=== PATIENT | female | born 1980 | race Caucasian/White ===

== ENCOUNTER 2019-11-12 07:08 | Emergency (ER) | payer BC, SELFPAY ==
[2019-11-12 07:15] VITALS: BP 165/105; PULSE 88; RESP 18; TEMP 36.1; O2SAT 100
[2019-11-12 08:07] LABS: Basophils Percent Auto 0.8 % (0.2-1.2); Eosinophils Absolute Auto 0.2 K/mm3 (0-0.3); Eosinophils Percent Auto 3.3 % (0-4.4); Hematocrit 38.8 % (37.0-47.0); Hemoglobin 12.7 g/dL (12.0-15.0); Immature Granulocyte Absolute 0.05 K/mm3 (0.00-0.031); Lymphocytes Absolute Auto 1.54 K/mm3 (0.9-3.2); Lymphocytes Percent Auto 31.3 % (18.3-44.2); Mean Corpuscular HGB Conc 32.7 g/dl (32-36); Mean Corpuscular Hemoglobin 28.9 pg (26-34); Mean Corpuscular Volume 88.4 fl (80-100); Mean Platelet Volume 10.3 fl (7.4-10.4); Monocytes Absolute Auto 0.4 K/mm3 (0.1-0.6); Monocytes Percent Auto 7.5 % (2.6-8.5); Neutrophils Absolute Auto 2.8 K/mm3 (1.3-6.7); Neutrophils Percent Auto 56.1 % (45.5-73.1); Platelet Count Result 314 k/mm3 (150-375); Red Blood Count 4.39 M/mm3 (4.2-5.4); White Blood Count 4.9 K/mm3 (4.5-10.0)
--- NOTE | 2019-11-12 08:21 | ED.FEMALEGU ---
HPI - Female Genitourinary General Chief complaint: Vaginal Bleeding Stated complaint: and bleeding Time Seen by Provider: 11/12/19 07:59 Source: patient and RN notes reviewed Mode of arrival: ambulatory Limitations: no limitations History of Present Illness HPI Narrative: Pt is a 39 y/o female who presents to the ED with c/o vaginal bleeding. She notes that she just discovered she was last week with positive home tests. Pt states that she began having light vaginal bleeding 3 days ago. According to the nurse, the pt initially noticed bright red blood, but has since had more pink-colored blood. Pt also had some abd cramping with the spotting but denies any other symptoms. Reports today she took a hot shower and her symptoms stopped, so she came in the get checked out. MD elicited complaint: vaginal bleeding Onset (ago): day(s) (3) Location of symptoms: vaginal Vaginal bleeding: bright red Associated symptoms: abdominal pain (lower ABD cramping) Possible : at home test positive Related Data Home Medications Medication Instructions Recorded Confirmed hydrochlorothiazide 11/12/19 lisinopril 11/12/19 Allergies Allergy/AdvReac Type Severity Reaction Status Date / Time No Known Allergies Allergy Unverified 11/12/19 07:34 Review of Systems Review of Systems: All systems reviewed & are unremarkable except as noted in HPI and below Gastrointestinal: Gastrointestinal: Reports abdominal pain (lower ABD cramping) Genitourinary: Genitourinary: Reports abnormal vaginal bleeding PMFSH Past Medical History Medical History Anxiety HTN (hypertension) Migraines Surgical History Surgical History Hx of section x2 Social History Social History Smoking status: Never smoker Gender identity (if verbalized by the patient): Female Exam Const: General: no acute distress and alert Orientation/consciousness: patient oriented x3 Other: fully dressed and seated comfortably on the gurney Resp: Effort & Inspection: normal respiratory effort Course Course Emergency Course: She was to get into a gown and be switched onto a pusher runner bed for exam but decided to sign herself out As such, no pusher runner exam and no imaging were done and she was appraised of possibility of miscarriage or ectopic prior to departing Labs which were done, included quant 5700 and O+ blood type Vital Signs Vital signs: Vital Signs Temperature 36.1 C L 11/12/19 07:15 Pulse Rate 88 11/12/19 07:15 Respiratory Rate 18 11/12/19 07:15 Blood Pressure 165/105 H 11/12/19 07:15 Pulse Oximetry 100 11/12/19 07:15 Temperature 36.1 C L 11/12/19 07:15 Pulse Rate 88 11/12/19 07:15 Respiratory Rate 18 11/12/19 07:15 Blood Pressure 165/105 H 11/12/19 07:15 Pulse Oximetry 100 11/12/19 07:15 MDM - Female Genitourinary Lab Data Result diagrams: 11/12/19 07:52 Labs: Lab Results 11/12/19 11/12/19 11/12/19 Range/Units 07:52 07:52 07:52 WBC 4.9 (4.5-10.0) K/mm3 RBC 4.39 (4.2-5.4) M/mm3 Hgb 12.7 (12.0-15.0) g/dL Hct 38.8 (37.0-47.0) % MCV 88.4 (80-100) fl MCH 28.9 (26-34) pg MCHC 32.7 (32-36) g/dl RDW 13.0 (11.5-14.5) % Plt Count 314 (150-375) k/mm3 MPV 10.3 (7.4-10.4) fl Immature Gran % (Auto) 1.0 H (0-0.5) % Neut % (Auto) 56.1 (45.5-73.1) % Lymph % (Auto) 31.3 (18.3-44.2) % [place] % (Auto) 7.5 (2.6-8.5) % Eos % (Auto) 3.3 (0-4.4) % Baso % (Auto) 0.8 (0.2-1.2) % Lymph # (Auto) 1.54 (0.9-3.2) K/mm3 [place] # (Auto) 0.4 (0.1-0.6) K/mm3 Eos # (Auto) 0.2 (0-0.3) K/mm3 Baso # (Auto) 0.0 (0.0-0.1) K/mm3 Abs Immat Gran (auto) 0.05 H (0.00-0.031) K/mm3 Absolute Neuts (auto) 2.8 (1.3-6.7) K/mm3 Absolute Nucleated RBC 0.0
--- NOTE | 2019-11-12 08:45 | PC.NURSE ---
Addendum entered by Zachariah Lopez RN 11/12/19 09:06: laser engraver Karmen made aware of pt's complaint and to bedside to speak with patient. Original Note: Pt being prepared for pelvic exam, pt becomes tearful, states he was rude. I don't want to do it. I just feel like I'm wasting all of your time. I mean, do I really need to be here?. Pt reports ERP made her feel uncomfortable. Emotional support given. Explained need for pelvic exam and risks of not completing testing. Pt verbalizes understanding but states does not wish to have a pelvic exam per him. Offered to complete the exam with another provider, pt continues to refuse and states will follow up with her doctor.
== END 2019-11-12 08:57 | disposition left against medical advice (07) ==
PROVIDERS: Emergency Provider Emergency Medicine
DX: O20.0 Threatened abortion (principal); O10.911 Unspecified pre-existing hypertension complicating pregnancy, first trimester; Z3A.00 Weeks of gestation of pregnancy not specified
CPT/HCPCS: 36415; 81025; 84702; 85025; 99283

== ENCOUNTER 2019-11-15 16:17 | Emergency (ER) | payer BC, SELFPAY ==
--- NOTE | ~2019-11-15 | US_ITS ---
EXAMINATION: US OB <=14 wk fetus w TV DATE: 11/15/2019 19:01 INDICATION: Vaginal bleeding in . TECHNIQUE: Real-time transabdominal and transvaginal pelvic ultrasound was performed. COMPARISON: None. FINDINGS: TRANSABDOMINAL ULTRASOUND: The uterus measures 11.9 x 5.6 x 5.5 cm. The endometrial complex is 8 mm in thickness. There is a 6.5 cm subserosal fibroid. TRANSVAGINAL ULTRASOUND: The ovaries are not visualized. IMPRESSION: 1. No visible intrauterine gestational sac, which may be normal in early . Spontaneous abor tion and ectopic are not excluded. Serial beta-hCGs are recommended. 2. Uterine fibroid. Reviewed, dictated and finalized at location A. ERIES TECHNICAL OFFICER IMPRESSION: 1. No visible intrauterine gestational sac, which may be normal in early pregn grisel. Spontaneous and ectopic are not excluded. Serial beta- hCGs are recommended. 2. Uterine fibroid.
[2019-11-15 16:49] VITALS: BP 180/125; PULSE 108; RESP 18; TEMP 37.2; O2SAT 100
--- NOTE | 2019-11-15 17:20 | ED.FEMALEGU ---
HPI - Female Genitourinary General Chief complaint: Vaginal Bleeding Stated complaint: VAG BLEED 8WKS PREG Time Seen by Provider: 11/15/19 17:20 Source: patient Mode of arrival: ambulatory Limitations: no limitations History of Present Illness HPI Narrative: A 39 y/o female presents to the ED with c/o vaginal bleeding since Saturday (5 days ago) that has worsened since onset. Pt states that she is approximately 8 weeks and her LNMP was on 09/27/19. Pt had a positive test at home. Pt was seen in the ED yesterday for the same complaints and had a test done but the pt left because she got angry. Pt has not had an US done. Pt also c/o mid ABD pain that she describes as cramping in character and rates the pain as a 4/10 in severity. Pt notes that the ABD pain was radiating to her back this morning. Pt placed a heating pad on the area with some relief. She reports N/V this morning, but denies a fever and chills. Onset (ago): day(s) (5) Possible : at home test positive Date of Last Menstrual Period: 09/27/19 Related Data Home Medications Medication Instructions Recorded Confirmed hydrochlorothiazide 11/12/19 lisinopril 11/12/19 Allergies Allergy/AdvReac Type Severity Reaction Status Date / Time No Known Allergies Allergy Verified 11/15/19 16:57 Review of Systems Review of Systems: All systems reviewed & are unremarkable except as noted in HPI and below Constitutional: Constitutional: Denies chills, Denies fever(s), Denies headache(s) and Denies weakness Eyes: Eyes: Denies blurry vision ENT: Denies headache(s) and Denies neck pain Cardiovascular: Cardiovascular: Denies chest pain and Denies dyspnea Respiratory: Respiratory: Denies cough and Denies dyspnea Gastrointestinal: Gastrointestinal: Reports abdominal pain (mid with occasional radiation to back), Denies diarrhea, Reports nausea and Reports vomiting Genitourinary: Genitourinary: Reports abnormal vaginal bleeding, Denies hematuria and Denies dysuria Musculoskeletal: Musculoskeletal: Denies back pain and Denies neck pain Neurologic: Denies headache(s) and Denies weakness PMFSH Past Medical History Medical History Anxiety HTN (hypertension) Migraines Surgical History Surgical History Hx of section x2 Social History Social History Smoking status: Never smoker Gender identity (if verbalized by the patient): Female Comments PCP: Physician transportation analyst Exam Const: General: no acute distress and well developed Orientation/consciousness: oriented to person, oriented to place, oriented to time and patient oriented x3 HENMT: Head: normocephalic Ears: external ears normal General nose exam: Normal external nose present Eyes: General: appearance normal, both eyes and all related structures Conjunctivae: conjunctivae normal Neck: Neck: normal visual inspection and full ROM Chest: Chest palpation & inspection: normal inspection of the chest and no tenderness Resp: Effort & Inspection: normal respiratory effort Auscultation: clear to auscultation bilaterally Cardio: Rate: regular rate Rhythm: regular rhythm GI: GI Palp: No abdominal tenderness and Yes Soft to palpation : Speculum Exam - Cervix: Cervical os closed Other: Blood in vaginal canal. No adnexal tenderness. Skin: General skin exam: normal color and turgor normal Neuro: General: oriented to person, oriented to place, oriented to time and patient oriented x3 Cognition (Neuro): normal cognition Extrem: General: normal to inspection, full ROM and no pedal edema Psych: Appearance: grossly normal Mental Status: mental status grossly normal Affect: normal affect Course Consultations Consultation #1: Discussed case with Dr. Tapia who agrees with the assessment that patient likely miscarri
[2019-11-15 17:44] LABS: Basophils Percent Auto 0.6 % (0.2-1.2); Eosinophils Absolute Auto 0.1 K/mm3 (0-0.3); Eosinophils Percent Auto 2.2 % (0-4.4); Hematocrit 38.8 % (37.0-47.0); Hemoglobin 12.6 g/dL (12.0-15.0); Immature Granulocyte Absolute 0.02 K/mm3 (0.00-0.031); Immature Granulocyte Percent A 0.4 % (0-0.5); Lymphocytes Absolute Auto 1.38 K/mm3 (0.9-3.2); Lymphocytes Percent Auto 27.5 % (18.3-44.2); Mean Corpuscular HGB Conc 32.5 g/dl (32-36); Mean Corpuscular Hemoglobin 28.7 pg (26-34); Mean Corpuscular Volume 88.4 fl (80-100); Mean Platelet Volume 10.3 fl (7.4-10.4); Monocytes Absolute Auto 0.3 K/mm3 (0.1-0.6); Neutrophils Absolute Auto 3.2 K/mm3 (1.3-6.7); Neutrophils Percent Auto 63.3 % (45.5-73.1); Platelet Count Result 302 k/mm3 (150-375); Red Blood Count 4.39 M/mm3 (4.2-5.4); Red Cell Distribution Width 12.9 % (11.5-14.5)
[2019-11-15 18:03] LABS: Alanine Aminotransferase 20 U/L (4-35); Albumin Level 4.4 g/dL (3.5-5.1); Alkaline Phosphatase 83 U/L (38-126); Aspartate Amino Transferase 24 U/L (14-36); Bilirubin,Total 0.5 mg/dL (0.2-1.3); Blood Urea Nitrogen 11 mg/dL (7-17); Calcium 9.2 mg/dL (8.4-10.2); Carbon Dioxide 20 mmol/L (22-30); Chloride 104 mmol/L (98-107); Estimated CRCL calculation 126 ml/min; Estimated Glomerular Filt Rate > 60; Glucose 81 mg/dL (65-105); Potassium 3.7 mmol/L (3.4-5.0); Sodium 136 mmol/L (137-145)
[2019-11-15 19:57] LABS: Add Urine Microscopic? YES; Appearance Urine Cloudy (Clear); Bilirubin Urine Negative (Negative); Blood Urine 3+ (Negative); Color Urine Yellow (Yellow); Glucose Urine UA Negative (Negative); Ketones Urine 1+ mg/dL (Negative); Leukocyte Esterase Ur Negative LEU/UL (Negative); Mucus Urine Heavy /lpf; Nitrate Urine Negative (Negative); Protein Urine 2+ mg/dL (Negative); RBC Urine >75 /hpf (0-2); Squamous Epithelial Cell Urine Many /hpf (Few); Urobilinogen Urine Negative mg/dL (<2.0); WBC Urine 0-3 /hpf
[2019-11-15 19:58] LABS: Specific Grav Ur 1.032 (1.001-1.035)
[2019-11-15 20:15] VITALS: BP 140/99; PULSE 88; RESP 20; O2SAT 98
== END 2019-11-15 20:15 | disposition home or self-care (01) ==
PROVIDERS: Emergency Provider Emergency Medicine
DX: O03.9 Complete or unspecified spontaneous abortion without complication (principal); I10 Essential (primary) hypertension; D25.9 Leiomyoma of uterus, unspecified
CPT/HCPCS: 36415; 76801; 76817; 80053; 81001; 84702; 85025; 88305; 99284

== ENCOUNTER 2021-09-22 15:05 | Emergency (ER) | payer BC, SELFPAY ==
[2021-09-22 15:16] VITALS: BP 187/100; PULSE 117; RESP 20; TEMP 36.4; O2SAT 100
--- NOTE | 2021-09-22 15:37 | ED.GENADULT ---
HPI - General Adult General Chief complaint: Urogenital-Female Stated complaint: unknown Source: patient Mode of arrival: ambulatory Limitations: no limitations History of Present Illness HPI narrative: Patient is a 40-year-old -[place] female presents to the [facility] via POV for her. She states she was contacted by her significant other of 7 years who informed her today he was positive for trichomonas. Patient states she is asymptomatic at this time. Related Data Home Medications Medication Instructions Recorded Confirmed amlodipine 09/22/21 Allergies Allergy/AdvReac Type Severity Reaction Status Date / Time No Known Allergies Allergy Verified 11/15/19 16:57 Review of Systems Review of Systems: Pertinent negatives: fever, chills, sweats, change in appetite, poor p.o. intake, recent weight loss/gain, back pain, flank pain, dysuria, hematuria, urinary frequency, urinary urgency, , skin rash, rash on genitalia/groin, pruritus, painful intercourse, lesions, abdominal pain, nausea, vomiting, diarrhea, constipation, shortness of breath, chest pain, heart palpitations, and heart murmur PMFSH Past Medical History Medical History Anxiety HTN (hypertension) Migraines Surgical History Surgical History Hx of section x2 Social History Social History Smoking status: Never smoker Gender identity (if verbalized by the patient): Female Comments Reviewed Exam Narrative: GENERAL: Well-appearing, well-nourished, and in no acute distress. HEAD: Normocephalic, atraumatic. NECK: Supple. No lymphadenopathy or nuchal rigidity. CHEST: Lung sounds are clear to auscultation in bilateral lung cardenas. No respiratory distress. HEART: Tachycardia with a rate of 117. Regular rhythm. No murmur, gallop, or rub heard. ABDOMEN: Soft, non-tender, non-distended, normal active bowel sounds in all quadrants. No guarding. No rebound tenderness. No pulsatile or palpable abdominal mass(es). No CVATGU: Bladder non-distended, non-tender EXTREMITIES: Normal range of motion. No edema. SKIN: Warm, dry, no rash. No skin color changes. Excellent turgor. NEURO: No focal deficits. Alert and oriented x3. SPECIAL OBSERVATIONS: Crying all the laughs at times. Course Vital Signs Vital signs: Vital Signs Temperature 97.6 F 09/22/21 15:16 Pulse Rate 117 H 09/22/21 15:16 Respiratory Rate 20 09/22/21 15:16 Blood Pressure 187/100 H 09/22/21 15:16 Pulse Oximetry 100 09/22/21 15:16 Temperature 97.6 F 09/22/21 15:16 Pulse Rate 117 H 09/22/21 15:16 Respiratory Rate 20 09/22/21 15:16 Blood Pressure 187/100 H 09/22/21 15:16 Pulse Oximetry 100 09/22/21 15:16 Due to an elevated blood pressure, I had a detailed discussion with the patient and/or guardian regarding the need for follow-up with their primary care provider within the next 3-4 days. Patient verbalized understanding and agreed. Medical Decision Making Differential Diagnosis Differential Diagnosis: Nephrolithiasis, urinary tract infection, pyelonephritis, frequency of micturition, dysuria, chlamydia, gonorrhea, trichomonas Medical Records Medical records reviewed: Yes I reviewed the external patient's medical records. Vital Signs Vital Signs: Vital Signs Temperature 97.6 F 09/22/21 15:16 Pulse Rate 117 H 09/22/21 15:16 Respiratory Rate 20 09/22/21 15:16 Blood Pressure 187/100 H 09/22/21 15:16 Pulse Oximetry 100 09/22/21 15:16 Temperature 97.6 F 09/22/21 15:16 Pulse Rate 117 H 09/22/21 15:16 Respiratory Rate 20 09/22/21 15:16 Blood Pressure 187/100 H 09/22/21 15:16 Pulse Oximetry 100 09/22/21 15:16 Lab Data Labs: Lab Results 09/22/21 Range/Units 15:00 C.trachomatis RNA (TMA) Pending N.gonorrhoeae RNA (TMA
== END 2021-09-22 15:45 | disposition home or self-care (01) ==
PROVIDERS: Emergency Provider Nurse Practitioner Family
DX: Z20.2 Contact with and (suspected) exposure to infections with a predominantly sexual mode of transmission (principal); I10 Essential (primary) hypertension
CPT/HCPCS: 87491; 87591; 87661; 99214; G0463

== ENCOUNTER 2021-11-26 10:43 | Emergency (ER) | payer BC, SELFPAY ==
--- NOTE | 2021-11-26 10:48 | ED.WOUNDLAC ---
HPI - Wound/Laceration General Chief Complaint: Wound/Laceration Stated Complaint: cut right hand Time Seen by Provider: 11/26/21 10:58 Source: patient and RN notes reviewed Mode of arrival: ambulatory Limitations: no limitations History of Present Illness HPI narrative: 41-year-old female presents with concern for a laceration to the palmar aspect of her right hand that she sustained just prior to arrival, reports she sustained laceration on a knife in her sink. She denies decree strength, states, range of motion in the hand or digits. She Extremity Location: Right: hand Related Data Home Medications Medication Instructions Recorded Confirmed amlodipine 09/22/21 hydrochlorothiazide 12.5 mg PO DAILY 11/26/21 11/26/21 Allergies Allergy/AdvReac Type Severity Reaction Status Date / Time No Known Allergies Allergy Verified 11/26/21 11:14 Review of Systems Review of Systems: CONSTITUTIONAL: Denies malaise, chills, sweats, or fever. SKIN: Reports laceration to the palmar aspect of the right hand MUSCULOSKELETAL: Denies muscle skeletal pain NEUROLOGIC: Denies numbness, weakness All systems reviewed & are unremarkable except as noted in HPI and below PMFSH Past Medical History Medical History (Updated 11/26/21 @ 11:07 by Dianelys Rapp NP) Anxiety HTN (hypertension) Migraines Surgical History Surgical History Hx of section x2 Social History Social History Smoking status: Never smoker Gender identity (if verbalized by the patient): Female Comments At time of signature, agree with nursing past medical, surgical, social and family history. There is no relevant family history pertinent to the presenting complaint Exam Narrative: GENERAL: Well-appearing, well-nourished, and in no acute distress. HEAD: Normocephalic EYES: PERRLA, conjunctivae clear NECK: Supple. CHEST: Speaks in full sentences. No respiratory distress. HEART: Regular rate and rhythm. Normal and equal peripheral pulses. EXTREMITIES: Right hand and digits of hand have normal strength and sensation. 5/5 strength with digit flexion, extension. Range of motion normal. No clubbing, cyanosis, or edema noted. No tenderness. Skin intact. Normal digital cascade with flexion of fingers, median, ulnar and radial nerve intact. Normal sensation of each side of finger. Can perform 'okay' sign, 'cross over finger test of index and middle fingers' and 'thumbs up' sign. No scissoring. Normal thumb opposition. Good capillary refill and radial pulse. Distal capillary refill less than 3 seconds. Patient is right/left hand dominant SKIN: Warn, dry, intact, pink. No rash 1 cm laceration noted to the palmar aspect of the right hand not involving the webbing, near digit 1 NEURO: Alert and oriented x3. PSYCH: Normal mood and affect Course Course Emergency Course: Patient is aware of diagnosis, understands and agrees to treatment plan. Anticipatory guidance given. Patient agrees to follow-up as directed and is aware of reasons to seek care at the emergency department. Portions of this record may have been created with voice recognition software Level of Care: Express Care Visit Vital Signs Vital signs: Reviewed. Patient has history of hypertension Procedures Laceration Laceration 1: Date: 11/26/21 Time: 11:05 Site: hand Side (If applicable): right Size (cm): 1 Description: linear Depth: simple, single layer Local Anesthetic: lidocaine 1% Pre-repair: wound explored and irrigated ====== Skin Level ====== Skin layer closed with: nylon Size (cm): 4-0 Number of sutures: 2 Technique: simple, interrupted ====== Subcutaneous Layer ====== ====== Muscle Layer ====== ====== Tendon Layer ====== MDM - Wound/Laceration MDM Narrative
[2021-11-26 10:54] VITALS: BP 166/107; PULSE 75; RESP 16; TEMP 36.4; O2SAT 99
[2021-11-26] MEDS: TETANUS,DIPHTHERIA,AC PERTUSSIS ADULT (0.5 ML) BOOSTRIX IM (11:23)
== END 2021-11-26 11:35 | disposition home or self-care (01) ==
PROVIDERS: Emergency Provider Nurse Practitioner
DX: S61.411A Laceration without foreign body of right hand, initial encounter (principal); W26.0XXA Contact with knife, initial encounter; Z23 Encounter for immunization; I10 Essential (primary) hypertension
CPT/HCPCS: 12001; 90471; 90715; 99212; G0463

== ENCOUNTER 2023-10-27 23:39 | Emergency (ER) | payer OTHER, SELFPAY ==
--- NOTE | ~2023-10-27 | XR_ITS ---
Right ankle Technique: AP, oblique, and lateral views were obtained. Clinical History: Fracture, status post splinting Findings: Medial and lateral malleolus fractures are again present, mildly displaced. Stable mild wid ening of the medial aspect of the ankle mortise. Questionable posterior malleolus fracture. Status po st placement of cast about the ankle. Impression: Status post casting of ankle. Stable fractures, as noted above and on recent prior exam. Reviewed, dictated and finalized at location M. REACTOR OPERATOR HEAD Impression: Status post casting of ankle. Stable fractures, as noted above and on recent pr ior exam.
--- NOTE | ~2023-10-27 | XR_ITS ---
Right ankle Technique: AP, oblique, and lateral views were obtained. Clinical History: Trauma Findings: There is a transverse fracture the base the medial malleolus, mildly displaced. There is ob lique fracture of the distal fibula, at and just proximal to the ankle mortise, minimally displaced. Probable very small minimally displaced fracture the posterior malleolus on lateral view. There is wi dening of the medial aspect of ankle mortise. Soft tissues are otherwise unremarkable. Impression: Medial and lateral malleolus fractures, as detailed above. Suspected additional small nondisplaced po sterior malleolus fracture. Widening of the medial aspect of the ankle mortise. Reviewed, dictated and finalized at location M. FARM ELECTRICAL SYSTEMS DESIGNER Impression: Medial and lateral malleolus fractures, as detailed above. Suspected additional small nondisplaced posterior malleolus fracture. Widening of the medial aspect of the ankle mortise.
[2023-10-27 23:42] VITALS: BP 206/112; PULSE 110; RESP 20; TEMP 36.9; O2SAT 100
--- NOTE | 2023-10-27 23:55 | ED.LOWEXIN ---
HPI - Extremity Injury (Lower) General Chief Complaint: Extremity Injury, Lower <CARMELLA Jenkins Last Filed: 10/28/23 02:27> Stated Complaint: Right ankle injury, fall <CARMELLA Jenkins Last Filed: 10/28/23 02:27> Time Seen by Provider: 10/27/23 23:51 <CARMELLA Jenkins Last Filed: 10/28/23 02:27> Source: patient <CARMELLA Jenkins Last Filed: 10/28/23 02:27> Mode of arrival: wheelchair <CARMELLA Jenkins Filed: 10/28/23 02:27> Limitations: no limitations <CARMELLA Jenkins Filed: 10/28/23 02:27> History of Present Illness HPI Narrative: Patient is a 43 y/o female who presents to the ED with c/o R ankle pain. Patient reports she was out for her birthday tonight and had been drinking alcohol. She states she slipped on a patch of ice. She states her right ankle bent backwards. She complains of pain to her right ankle. Unable to bear weight. Denies numbness or tingling. Denies any other injuries. She did not hit her head or lose consciousness. <CARMELLA Jenkins Last Filed: 10/28/23 02:27> Related Data Home Medications: Home Medications Medication Instructions Recorded Confirmed amlodipine 10 mg tablet 10 mg PO DAILY 09/22/21 hydrochlorothiazide 12.5 mg capsule 12.5 mg PO DAILY 11/26/21 11/26/21 <CARMELLA Jenkins Last Filed: 10/28/23 02:27> Allergies/Adverse Reactions: Allergies Allergy/AdvReac Type Severity Reaction Status Date / Time No Known Allergies Allergy Verified 11/26/21 11:14 <CARMELLA Jenkins Last Filed: 10/28/23 02:27> Review of Systems Review of Systems: CONSTITUTIONAL: Denies fever, chills, or sweats. MUSCULOSKELETAL: See HPI. NEUROLOGIC: See HPI. <Megha Cope PA-C - Last Filed: 10/28/23 02:27> All systems reviewed & are unremarkable except as noted in HPI and below <Megha Cope PA-C - Last Filed: 10/28/23 02:27> [facility] Past Medical History Medical History: Medical History Anxiety HTN (hypertension) Migraines <Megha Cope PA-C - Last Filed: 10/28/23 02:27> Surgical History Surgical History: Surgical History Hx of section x2 <Megha Cope PA-C - Last Filed: 10/28/23 02:27> Social History Social History: Social History Smoking status: Never smoker Gender identity (if verbalized by the patient): Female <Megha Cope PA-C - Last Filed: 10/28/23 02:27> Exam Narrative: GENERAL: Uncomfortable appearing, obese with BMI of 34.1. Non-toxic, in mild acute distress due to pain. HEAD: Normocephalic, atraumatic. RESPIRATORY: Airway patent, respirations nonlabored. CARDIOVASCULAR: Regular rate and rhythm. Pedal pulses 2+ MUSCULOSKELETAL: Limited range of motion of right ankle due to pain. Swelling noted throughout right ankle joint. Significant tenderness to palpation along posterior lateral malleoli, tenderness also noted along medial malleoli. No tenderness along 5th metatarsal or distal foot. Sensation intact. Capillary refill 2 sec. SKIN: Warm, dry, normal color. NEURO: A&O X3. Speech clear. Cranial nerves II-XII grossly intact. No ataxic movements. PSYCHIATRIC: Appropriate mood and affect. Normal interaction. <Megha Cope PA-C - Last Filed: 10/28/23 02:27> Course HOT MILL SUPERVISOR/PA Physician Supervision This is a was performed by both a physician and an APC. I performed all aspects of the MDM as documented w/ the following additions:43-year-old female presenting with a dry mouth fracture. It was reduced and placed in a splint by myself. Given Orthopedic follow-up. patient blood pressure was elevated. She is a known hypertensive and is not vivi
[2023-10-28] MEDS: KETOROLAC (*BKC) 60 MG/2 ML VIAL IM (00:30)
[2023-10-28] MEDS: HYDROcodone/acetaminophen (*CRX) 5-325 MG TABLET 1 TAB PO (00:30)
--- NOTE | 2023-10-28 00:45 | PC.NURSE ---
CARMELLA HERNANDEZ VERBALLY DISCONTINUED DILAUDID IM FOR PT. THIS RN VERBALIZED CONFIRMATION OF DISCONTINUATION OF MEDICATION.
[2023-10-28] MEDS: HYDROmorphone HCL INJ (*CRX) 1 MG/ML SYR 0.5 MG IM (01:30)
[2023-10-28 01:42] VITALS: BP 215/127; PULSE 89; O2SAT 100
== END 2023-10-28 01:53 | disposition home or self-care (01) ==
LOC: ANHED 10-28 01:01
PROVIDERS: Emergency Provider Physician Assistant
DX: S82.851A Displaced trimalleolar fracture of right lower leg, initial encounter for closed fracture (principal); I10 Essential (primary) hypertension; W00.0XXA Fall on same level due to ice and snow, initial encounter
CPT/HCPCS: 27818; 73610; 96372; 99285; A9270; J1170; J1885

== ENCOUNTER 2023-11-01 02:09 | Day surgery (SDC) | payer OTHER, SELFPAY ==
[2023-10-31 11:57] VITALS: BMI 36.6
--- NOTE | 2023-10-31 12:02 | PC.NURSE ---
Report to the Outpatient Waiting Room, entrance under the green pavilion located off [facility], at time 1230 on date 11/01/23. Planned Procedure Time: 1430. Time changes happen often and if your time is changed the preop area will call you the afternoon before. - You and your visitor will be asked to self-screen and do not enter if you have any COVID symptoms. - A mask is optional within the hospital at this time. Patients may have clear liquids (water, carbonated beverages, clear teas, apple juice) until 3 hours prior to surgery with a maximum of 20 ounces. - No food from midnight until time of surgery Take the following medications with a SIP of water the morning of surgery: TRAMADOL IF NEEDED DO NOT STOP ANY OF YOUR OTHER PRESCRIPTION MEDICATIONS PRIOR TO SURGERY ?EXCEPT THE FOLLOWING Medications to discontinue per physician: N/A Date to take last dose: N/A Please no make-up, nail divehi, hairspray, perfume, deodorant, or body powder the day of surgery. No jewelry (including any body piercings) or valuables the day of surgery, leave them at home. Please take a shower or bath the night before, or the morning of, surgery with an antibacterial soap. Wear comfortable, loose fitting clothing. - Jewelry must be removed prior to entering the operating room. Rings and piercings that are not removed may be cut off. - The hospital will not accept responsibility for valuables. - Please leave all valuables, including medications, at home the day of surgery. If you are going home after surgery, a licensed lifter/driver must drive you home. - NO public transportation without another adult if you receive anesthesia. - We recommend that an adult stay with you for 24 hours following discharge. - We also recommend that you do not drive, make important decision, drink alcoholic beverages, or take any drugs that were not prescribed by your health care provider for at least 24 hours after your discharge time. Follow any additional instructions given to you from your surgeon. If you or anyone in your household have experienced Covid symptoms in the past week, please notify your surgeon or the nurse liaison at the phone number below for possible testing. Telephone instructions given to PT - CARMELINA MINAYA and asked if any additional questions and then verbalized understanding. Patient advised to call surgeon office or pre surgery nurse liaison [phone] if any additional questions.
[2023-11-01] VITALS (18 sets, daily range): BP systolic 95–200; BP diastolic 56–116; PULSE 72–122; RESP 14–20; TEMP 36.4–36.6; O2SAT 96–100
--- NOTE | ~2023-11-01 | XR_ITS ---
EXAMINATION: XR surgery orthopedic DATE: 11/01/2023 15:13 INDICATION: ORIF right ankle fracture TECHNIQUE: 3 fluoroscopic images of the right ankle were obtained during procedure performed by Dr. Jessica funes. Radiologist was not present for the imaging or procedure. The amount of fluoroscopy time used during this procedure was 14.1 minutes. COMPARISON: None. FINDINGS: Interval open reduction internal fixation of a bimalleolar fracture at the right ankle are evident on the prior radiographs. The medial malleolar fractures fixed with a pair of retrograde cannulated lag screws. The lateral malleolar fractures fixed with a retrograde intramedullary chaparro with a pair of di stal interlocking screws. Alignment is essentially anatomic of the medial malleolar fracture and near -anatomic with approximately 1 cortical width posterior displacement proximally and minimal anterior angulation of the lateral malleolar fracture. No other fractures identified. Profiled joint spaces ap pear normal. IMPRESSION: 1. Near-anatomic alignment post open reduction and internal fixation of a bimalleolar fracture of the right ankle. Reviewed, dictated and finalized at location A. NING STRATEGIST IMPRESSION: 1. Near-anatomic alignment post open reduction and internal fixation of a juli leolar fracture of the right ankle.
--- NOTE | 2023-11-01 07:08 | WPDHPUPDATE1 ---
History and Physical Update Update Date/Time: 11/01/23 07:08 History and Physical has been reviewed, including an updated exam of the patient. There are NO changes in the patient's condition. Risks, benefits, and alternatives have been discussed and questions answered. Patient agrees to proceed with procedure.
--- NOTE | 2023-11-01 09:48 | ECG_ITS ---
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
[2023-11-01] MEDS: CELECOXIB 200 MG CAPSULE PO (12:45)
[2023-11-01] MEDS: ACETAMINOPHEN 500 MG TABLET 1000 MG PO (12:45)
[2023-11-01] MEDS: LACTATED RINGERS 1,000 ML 30 ML IV CONT ×3 (13:06→16:39)
--- NOTE | 2023-11-01 13:13 | P.PNAN_ITS ---
Anes - Initial Pre Proc Eval Procedure: Operation Date: 11/01/23 14:30 Proposed Procedures p Open Reduction Internal Fixation Right Bimalleolar Ankle Fracture - Walter Hussein MD Date/Time: 11/01/23 13:13 Surgeon: Walter Hussein MD Pre Op Diagnosis: right bimalleolar fracture Patient Data Age: 43 Gender: F Height: 1.65 m Weight: 99.8 kg Allergies Allergy/AdvReac Type Severity Reaction Status Date / Time No Known Allergies Allergy Verified 11/01/23 12:31 Home Medications Medication Instructions Recorded Confirmed Type amlodipine 10 mg tablet 10 mg PO HS 09/22/21 11/01/23 History hydrochlorothiazide 12.5 mg capsule 12.5 mg PO DAILY 11/26/21 11/01/23 History tramadol 50 mg tablet 50 mg PO Q6H PRN Pain 10/31/23 10/31/23 History Patient hx anesthesia problems: none Family hx anesthesia problems: none Results Review: All pre-operative results and documents have been reviewed as part of the pre- operative evaluation. ON LICENSE OF [facility] Past Medical History Medical History (Updated 10/31/23 @ 10:52 by Walter Hussein MD) Anxiety HTN (hypertension) Migraines Surgical History Surgical History Hx of section x2 Social History Social History Smoking status: Never smoker Alcohol intake: current Alcohol use details: RARE Substance use: never Substance use type: does not use Living arrangements: with family Additional living arrangements comments: CHILDREN Gender identity (if verbalized by the patient): Female Spiritual care concerns: No Anes - Eval Final PreProcedure Day of Procedure 11/01/23 13:13 Patient weight: obese Heart: regular rate and rhythm Lungs: clear to auscultation Airway: Mallampati scale class II Neurological: alert and oriented Last oral intake: >/= 8 hours ASA classification: III Emergent: no Anesthetic plan: proceed Anesthesia type and monitoring: general LMA and standard monitoring Results Review: All pre-operative results and documents have been reviewed as part of the pre- operative evaluation. Informed Consent: The patient's anesthetic plan and its attendant risks and benefits were discussed with the patient/family/POA. Questions were solicited and answers provided to the satisfaction of the patient/family/POA.
[2023-11-01 13:28] LABS: Anion Gap 8 mmol/L (8-16); Blood Urea Nitrogen 16 mg/dL (7-17); Calcium 8.9 mg/dL (8.4-10.2); Carbon Dioxide 21 mmol/L (22-30); Chloride 108 mmol/L (98-107); Estimated CRCL calculation 108 ml/min; Estimated Glomerular Filt Rate > 60; Glucose 94 mg/dL (65-110); Sodium 137 mmol/L (137-145)
[2023-11-01] MEDS: ceFAZolin 2 GM/D5W 50 ML 2 GM/50 ML BAG IVPB (13:40)
[2023-11-01] MEDS: BUPivacaine HCL 0.5% 10 ML AMP INFILTRATE (14:49)
--- NOTE | 2023-11-01 15:46 | W.PM.PROC2 ---
Procedure Note - Detailed Date of Procedure 11/01/23 Pre-op Diagnosis right bimalleolar fracture Post-op Diagnosis Same Procedure Performed ORIF RIGHT ANKLE FRACTURE DISLOCATION WITH SYNDESMOTIC TIGHTROPE FIXATION. Surgeon Walter Hussein MD Anesthesia General Description of Procedure THE PATIENT WAS TAKEN TO THE OR. THE RIGHT LEG WAS PREPPED AND DRAPED IN THE NORMAL FASHION. AN INCISION WAS MADE AT THE DISTAL FIBULA TIP. A GUIDE PIN WAS INSERTED USING FLUOROSCOPY AND BRIDGING THE FRACTURE FRAGMENTS. A REAMER WAS USED TO REAM THE PROXIMAL AND DISTAL FRACTURE FRAGMENTS. A 3.0 X 130 MM ARTHREX FIBULAR AJ WAS INSERTED AND LOCKED BOTH PROXIMALLY AND THEN DISTALLY WITH 2 SCREWS. C ARM WAS USED THE IMAGE THE ANKLE AND IT WAS FOUND THAT HARDWARE WAS IN GOOD POSITION AND THE SYNDESMOSIS AND FIBULA FRACTURE WAS REDUCED WELL. C ARM WAS USED THE CONFIRM THE POSITION OF THE ANKLE AND HARDWARE. NEXT THE MEDIAL MALLEOLUS WAS IDENTIFIED AND AN INCISION WAS MADE OVER THE MEDIAL ANKLE. THE FRACTURE WAS IDENTIFIED AND USING FRACTURE CLAMPS THE MEDIAL MALLEOLUS FRACTURE WAS REDUCED TO ANATOMIC POSITION. 2, 4.0 PARTIALLY THREADED CANNULATED SCREWS WERE PLACED BRIDGING THE FRACTURE FRAGMENTS. C ARM ONCE AGAIN CONFIRMED FRACTURE REDUCTION AND HARDWARE IN GOOD POSITION. NEXT THE WOUNDS WERE WASHED AND 3-0 SUTURES WERE USED TO APPROXIMATED THE WOUNDS. BERNY WERE USED TO CLOSE THE SKIN. WOUNDS WERE WASHED THEN PLACED IN A STERILE DRESSING, THEN A PLASTER SPLINT WAS PLACED.. PATIENT WAS EXTUBATED AND SENT TO RECOVERY ROOM IN STABLE CONDITION. Estimated Blood Loss 40 Complications No immediate complications Condition Stable Disposition PACU
[2023-11-01] MEDS: fentaNYL CITRATE INJ (*CRX) 100 MCG/2 ML VIAL 25 MCG IV PUSH ×4 (15:57→16:07)
[2023-11-01] MEDS: HYDROmorphone HCL INJ (*CRX) 1 MG/ML SYR 0.5 MG IV PUSH ×4 (16:14→17:20)
[2023-11-01] MEDS: LABETALOL HCL INJ 100 MG/20 ML VIAL IV PUSH (16:23)
[2023-11-01] MEDS: hydrALAZINE HCL 20 MG/ML VIAL 5 MG IV PUSH ×3 (16:38→17:21)
--- NOTE | 2023-11-01 17:19 | SUR.PHASEI ---
MD Hussein contacted - pt. requests tramadol rather than oxycodone for discharge d/t nausea that oxy has caused in the past.
[2023-11-01] MEDS: ONDANSETRON INJ 4 MG/2 ML VIAL IV PUSH (18:53)
--- NOTE | 2023-11-01 19:07 | SUR.PHASEII ---
1900 - family requesting call made to Dr. donahue to ask if he would order patient's home dose of blood pressure medication. states that patient is out of amilodipine. stated that pt does not have primary doctor and uses telehealth for medications. dr. donahue notified.
[2023-11-01] MEDS: KETOROLAC 30 MG/ML VIAL (*BKC) IV PUSH (19:10)
== END 2023-11-01 19:50 | disposition home or self-care (01) ==
PROVIDERS: Visit Provider Orthopaedic Surgery
PROC: (CPT 27814; principal; 2023-11-01 14:30)
DX: S82.841A Displaced bimalleolar fracture of right lower leg, initial encounter for closed fracture (principal); T14.90XA Injury, unspecified, initial encounter; I10 Essential (primary) hypertension; F41.9 Anxiety disorder, unspecified
CPT/HCPCS: 27814; 36415; 80048; 93005; 99199; A9270; C1713; C1769; J0360; J0690; J1100; J1170; J1885; J2250; J2371; J2405; J2704; J3010; J7120